=== PATIENT | female | born 1980 | race Caucasian/White ===

== ENCOUNTER 2016-12-02 01:07 | Emergency (ER) | payer SELFPAY ==
[2016-12-02] MEDS ORDERED: ACET325T45 PO (02:32)
[2016-12-02] MEDS ORDERED: PRENAT PO (02:32)
[2016-12-02] MEDS ORDERED: FOLI0.4T2 PO (02:32)
== END 2016-12-02 02:42 | disposition left against medical advice (07) ==
LOC: FTE 01:07
DX: Z53.21 Procedure and treatment not carried out due to patient leaving prior to being seen by health care provider (principal)

== ENCOUNTER 2016-12-02 01:33 | Inpatient (IN) | payer MEDICAID ==
[~2016-12-02] VITALS: Ht 160 cm; Wt 79.9 kg
[2016-12-02 02:11] LABS: URINE BLOOD (Dip) POC Trace-lysed (NEGATIVE)
[2016-12-02 02:20] VITALS: BP 128/74; PULSE 109; RESP 18
--- NOTE | 2016-12-02 02:30 | HP ---
Date/Time of Note Date/Time of Note DATE: 12/02/16 TIME: 02:22 OB - History Hx of Present Free Text/Dictation 36 YO with IUIP about 23 weeks presents to L&D for Headache. she has PNC at out side clinic and she is here as a panel patient. she reports she usually get headache weekly, but her headache usually resolves with Tylenol. she took Tylenol today, but her headache did not resolve. she is a poor historian. she denies LOF per vagina or UC. or VB. she reports FM. she gives a history of elevated BP prior to but not during . she denies RUQ pain or visual changes. Care: Good Care Ultrasounds: Normal mid trimester US Obstetrical Complications: Other (elevatd BP) Medical Complications: Other (h/o elevated BP) Past Family/Social History * Past Medical, Surgical, Family and Obstetric Histories reviewed from chart. OB Admission Exam Vital Signs Vital Signs Vital Signs Date Time Temp Pulse Resp B/P Pulse Ox O2 Delivery O2 Flow Rate FiO2 12/02/16 02:20 97.7 109 18 128/74 Room Air Physical Exam HEENT: WNL Heart: Rhythm Normal Lungs: Clear, Equal Abdomen: WNL Extremities: Normal Reflexes: Normal OB Assessment/Plan Other Assessment: most probably patient has chronic hypertension and Migraine headache, but I can not r/o PIH Other plan: admit for observation and obtain BPs in sitting position d/w RN CBC CMP Sono 24 hr urine collection obtain PNC records perinatologist consult SANDRITA COX MD Dec 02, 2016 02:30
[2016-12-02] MEDS ORDERED: ACET325T45 PO (02:32)
[2016-12-02] MEDS ORDERED: PRENAT PO (02:32)
[2016-12-02] MEDS ORDERED: FOLI0.4T2 PO (02:32)
--- NOTE | 2016-12-02 02:52 | TRIAGE ---
OB Triage Datetime Report Generated by CPN: 12/02/2016 02:52 Datetime: 12/02/2016 02:27 Vaginal Exam Membrane Status: Intact Datetime: 12/02/2016 02:14 Time of Arrival: 12/02/2016 01:34 EGA: 22.5 Arrived By: Ambulatory Arrived From: Emergency Dept Chief Complaint: w/ c/o ABDULLAHI x several days and Hi BP in ER Movement: Present Contractions: Denies/Absent Rupture of Membranes: Denies Vaginal Bleeding: None Vaginal Discharge: Denies Recent Sexual Intercouse: Denies Abdominal Trauma: Not Applicable Patient Complaints: Headache; Dizziness Additional Patient Complaints: Pt states had Hi BP before but not during Time Provider Notified: 12/02/2016 01:55 Provider Notified: Dr Dang Initial Plan: EFM, UA Datetime: 12/02/2016 02:00 Stage of : OB Triage Maternal Assessment Level of Consciousness: Fully Conscious Headache: Generalized Blurred Vision: No Respiratory Effort: Unlabored Nausea/Vomiting: Denies RUQ Epigastric Pain: Denies Facial Edema: None Labor Evaluation Frequency: placed Monitor Mode: External Resting Tone [place]: Relaxed Heart Rate Monitor Mode: External US Comments: FHT 150 Pain Assessment Pain Scale: 8 Pain Presence: Constant Pain Type: Pressure; Ache Pain Location: Head
[2016-12-02] MEDS ORDERED: AL HYDROX/MG HYDROX/SIMETH 30 ML CUP PO PRN (03:00)
[2016-12-02] MEDS ORDERED: HYDROCODONE/APAP (5/325) TAB PO ONE (03:00)
--- NOTE | 2016-12-02 03:15 | RADRPT ---
PROCEDURE: Obstetrical ultrasound, limited. CLINICAL INDICATION: Pelvic pain. TECHNIQUE: Multiple sonographic images of the pelvis were obtained using transabdominal technique . Images were obtained with mcneil scale and color Doppler. The images were reviewed on a PACS works tation. COMPARISON: No prior studies are available for comparison. FINDINGS: There is a single living intrauterine gestation with the fetus in a breech presentation. hear t tones of 163 beats per minute are identified. The placenta is fundal in location, grade 1. There is normal amniotic fluid volume with the maximum vertical pocket measuring 5.6 cm. There is no dina dence of placenta previa or abruption. Measurements were made in order to determine age. The results are as follows: BPD =5.81 cm HC =21.30 cm AC =19.03 cm FL =4.03 cm. Estimated gestational age of approximately 23 weeks and 4 days. The estimated date of delivery is 03/27/2017. The EFW = 596 +/- 89 grams. Estimated weight percentage equals 79.2%. IMPRESSION: Single viable intrauterine gestation of approximately 23 weeks and 4 days, with an ultrasound DAVID of 03/27/2017. .Ravi Wilcox MD, MD Date Time Electronically viewed and signed by .Ravi Wilcox MD, MD on 12/02/2016 03:15 .T/
[2016-12-02 04:09] LABS: INR 0.94; PROTIME 12.6 Sec (12.2-14.2)
[2016-12-02 04:10] LABS: BASOPHILS % 0.3 % (0.0-2.0); EOSINOPHILS % 0.2 % (0.0-7.0); HEMATOCRIT 34.4 % (37.0-47.0); HEMOGLOBIN 11.4 g/dl (12.0-16.0); LYMPHOCYTES # 1.7 10^3/ul (0.8-2.9); LYMPHOCYTES % 14.1 % (15.0-51.0); MEAN CORPUSCULAR HEMOGLOBIN 30.9 pg (29.0-33.0); MEAN CORPUSCULAR HGB CONC 33.1 g/dl (32.0-37.0); MEAN CORPUSCULAR VOLUME 93.2 fl (82.0-101.0); MONOCYTE # 0.6 10^3/ul (0.3-0.9); MONOCYTES % 5.2 % (0.0-11.0); NEUTROPHIL # 9.5 10^3/ul (1.6-7.5); NEUTROPHILS % 79.3 % (39.0-77.0); PARTIAL THROMBOPLASTIN TIME 26.2 Sec (25.0-35.0); PLATELET COUNT 354 10^3/UL (140-415); RED BLOOD COUNT 3.69 10^6/ul (4.20-5.40); RED CELL DISTRIBUTION WIDTH 13.5 % (11.5-14.5); WHITE BLOOD COUNT 11.9 10^3/ul (4.8-10.8)
[2016-12-02 04:15] LABS: ALBUMIN 4.2 g/dl (3.3-4.9); ALBUMIN/GLOBULIN RATIO 1.61; CREATININE 0.46 mg/dl (0.44-1.00); POTASSIUM 3.6 mmol/L (3.5-5.1); TOTAL PROTEIN 6.8 g/dl (6.1-8.1); URIC ACID 2.8 mg/dl (3.1-7.9)
[2016-12-02 04:20] LABS: ADD SCAN DIFF NO
[2016-12-02 05:43] LABS: BARBITURATES Negative (NEGATIVE); BENZODIAZEPINES Negative (NEGATIVE); CANNABINOIDS Negative (NEGATIVE); COCAINE Negative (NEGATIVE); OPIATES Negative (NEGATIVE)
[2016-12-02] MEDS ORDERED: MULTIVIT/MIN/FOLATE/IRON/PREN TAB PO SCH (09:00)
[2016-12-02] MEDS ORDERED: ACETAMINOPHEN 325 MG TAB PO PRN (10:00)
--- NOTE | 2016-12-02 11:07 | DS ---
Date/Time of Note Date/Time of Note DATE: 12/02/16 TIME: 11:02 Obstetrical Discharge Record Final Diagnosis Final Diagnosis: not delivered Other Final Diagnosis iup 23 weeks Headache resolving BP stable labs wnl pt admitted for obs with ABDULLAHI. BP initially 130/70 labs wnl trace protein. Bp on dc home 100/70. pt asymptomatic. fu with obgyn in 2-3 days Condition on Discharge Physical Assessment Voiding: Yes Bowel Movement: Yes Patient Condition: Stable DEEPAK MOSQUEDA MD Dec 02, 2016 11:07
== END 2016-12-02 12:15 | disposition home or self-care (01) | DRG 781 ==
LOC: L-D 01:33 → OBT 01:33 → L-D 01:55 → OBG 02:25 → OBT 02:25
PROVIDERS: ADMIT Specialist; ATTEND Specialist
DX: O26.892 Other specified pregnancy related conditions, second trimester (principal); O09.522 Supervision of elderly multigravida, second trimester; Z3A.23 23 weeks gestation of pregnancy; R51 Headache
CPT/HCPCS: 76815; 80053; 80307; 81003; 84560; 85025; 85610; 85730; G0463

== ENCOUNTER 2017-05-12 04:23 | Emergency (ER) | payer MEDICAID ==
[~2017-05-12] VITALS: Ht 160 cm; Wt 81.2 kg
[~2017-05-12 04:23] MED LIST: ACET325T45 PO; FOLI0.4T2 PO; PRENAT PO
[2017-05-12 04:32] VITALS: Ht 160 cm; Wt 81.2 kg
[2017-05-12] MEDS ORDERED: ONDANSETRON (ODT) 4 MG TAB ODT STA (04:46)
--- NOTE | 2017-05-12 04:56 | ERD ---
ER Documentation Chief Complaint Chief Complaint LOWER BACK PAIN HPI 36-year-old female presents to emergency department for complaints of right upper back right upper quadrant abdominal pain that started last night after eating. Patient describes a sharp pain, 6/10 scale, not better or worse with anything. Patient denies any hematuria or dysuria. Patient denies any fever chills. Patient denies any blood in the stool or black stool. Patient denies any vomiting. Patient denies any fever or chills. ROS All systems reviewed and are negative except as per history of present illness. Medications Home Meds Reported Medications Acetaminophen* (Acetaminophen*) 325 Mg Tablet, 325 MG PO Q4H Y for PAIN AND OR ELEVATED TEMP, #30 TAB 12/02/16 Folic Acid* (Folic Acid*) 0.4 Mg Tablet, 0.4 MG PO DAILY, TAB 12/02/16 Multivit/Min/Fol Ac/Iron/Pren* ( S*) 1 Tab Tab, 1 TAB PO DAILY, TAB 12/02/16 Allergies Allergies: Coded Allergies: No Known Allergy (Unverified , 12/02/16) PMhx/Soc Medical and Surgical Hx: pt denies Medical Hx, pt denies Surgical Hx History of Surgery: No Anesthesia Reaction: No Hx Neurological Disorder: No Hx Respiratory Disorders: No Hx Cardiac Disorders: No Hx Psychiatric Problems: No Hx Miscellaneous Medical Probl: No Hx Alcohol Use: No Hx Substance Use: No Hx Tobacco Use: Yes Smoking Status: Never smoker FmHx Family History: No coronary disease, No diabetes, No other Physical Exam Vitals Vital Signs Date Time Temp Pulse Resp B/P Pulse Ox O2 Delivery O2 Flow Rate FiO2 05/12/17 04:32 98.3 80 12 120/77 100 Physical Exam GENERAL: The patient is well developed and appropriate for usual state of health, in no apparent distress. CHEST: Clear to auscultation bilaterally. There are no rales, wheezes or rhonchi. HEART: Regular rate and rhythm. No murmurs, clicks, rubs or gallops. No S3 or S4. ABDOMEN: Soft, nontender and nondistended. Good bowel sounds. No rebound or guarding. No gross peritonitis. No gross organomegaly or masses. No Weiner sign or McBurney point tenderness. BACK: No midline or flank tenderness. EXTREMITIES: Equal pulses bilaterally. There is no peripheral clubbing, cyanosis or edema. No focal swelling or erythema. Full range of motion. Grossly neurovascularly intact. NEURO: Alert and oriented. Cranial nerves 2-12 intact. Motor strength in all 4 extremities with 5/5 strength. Sensation grossly intact. Normal speech and gait. SKIN: There is no apparent rash or petechia. The skin is warm and dry. HEMATOLOGIC AND LYMPHATIC: There is no evidence of excessive bruising or lymphedema. No gross cervical, axillary, or inguinal lymphadenopathy. Result Diagram: 05/12/17 0451 05/12/17 0451 Results 24 hrs Laboratory Tests Test 05/12/17 04:51 White Blood Count 11.210^3/ul Red Blood Count 4.3410^6/ul Hemoglobin 13.3g/dl Hematocrit 39.1% Mean Corpuscular Volume 90.1fl Mean Corpuscular Hemoglobin 30.6pg Mean Corpuscular Hemoglobin Concent 34.0g/dl Red Cell Distribution Width 12.6% Platelet Count 12113^3/UL Mean Platelet Volume 9.1fl Neutrophils % 70.2% Lymphocytes % 25.1% Monocytes % 3.9% Eosinophils % 0.3% Basophils % 0.2% Nucleated Red Blood Cells % 0.0/100WBC Neutrophils # 7.910^3/ul Lymphocytes # 2.810^3/ul Monocytes # 0.410^3/ul Eosinophils # 0.010^3/ul Basophils # 0.010^3/ul Nucleated Red Blood Cells # 0.010^3/ul Urine Color YELLOW Urine Clarity CLEAR Urine pH 5.0 Urine Specific [place] 1.015 Urine Ketones NEGATIVEmg/dL Urine Nitrite NEGATIVEmg/dL Urine Bilirubin NEGATIVEmg/dL Urine Urobilinogen NEGATIVEmg/dL Urine Leukocyte Esterase TRACELeu/ul Urine Microscopic RBC 1/HPF Urine Microscopic WBC 5/HPF Urine Squamous Epithelial Cells FEW/HPF Urine Hemoglobin NEGATIVEmg/dL Urine Glucose NEGATIVEmg/dL Urine Total Protein NEGATIVEmg/dl Sodium Level 142mmol/L Potassium Level 3.9mmol/L Chloride Level 103mmol/L Carbon Dioxide Level 25mmol/L Anion Gap 18 Blood Urea Nitrogen 13mg/dl Creatinine 0.66mg/dl Glucose Level 106mg/dl Calcium Level 9.4mg/dl Total Bilirubin 0.2mg/dl Direct Bilirubin 0.00mg/dl Indirect Bilirubin 0.2mg/dl Aspartate Amino Transf (AST/SGOT) 26IU/L Alanine Aminotransferase (ALT/SGPT) 44IU/L Alkaline Phosphatase 111IU/L Total Protein 7.8g/dl Albumin 4.5g/dl Globulin 3.30g/dl Albumin/Globulin Ratio 1.36 Lipase 99U/L Current Medications Medications (Trade) Dose Ordered Sig/Bernardino Route PRN Reason Start Time Stop Time Status Last Admin Dose Admin Acetaminophen/ Hydrocodone Bitart ([place] (10/325)) 1 tab ONCE ONCE PO 05/12/17 05:00 05/12/17 05:01 DC 05/12/17 04:56 Ondansetron HCl (Zofran Odt) 4 mg ONCE STAT ODT 05/12/17 04:46 05/12/17 04:47 DC 05/12/17 04:56 Patient was given medication for pain here in emergency department, after treatment, patient verbalized feeling much better. Patient's pain is improved. Patient was given Zofran here in the emergency department. After treatment, patient was able to tolerate po fluids here in the emergency department without any vomiting. There is no signs and symptoms of dehydration. PROCEDURE: US Abdomen (right upper quadrant). CLINICAL INDICATION: Right upper quadrant pain TECHNIQUE: Multiple real-time longitudinal and transverse images of the right upper quadrant of the abdomen were acquired utilizing a curved array transducer. Images were reviewed on a high-resolution PACS workstation. COMPARISON: None FINDINGS: The liver is enlarged and increased in echogenicity without focal mass or intrahepatic biliary dilatation. There is normal hepatopedal flow within the main portal vein. Multiple gallstones are seen. There is no pericholecystic fluid or gallbladder wall thickening.. No intra or extrahepatic biliary dilatation is seen. The common bile duct measures 4.5 mm in maximal dimension. The visualized portions of the pancreas are unremarkable with obscuration of the tail of the pancreas. No free fluid is identified. The right kidney measures 11.3 cm in length. There is normal echogenicity within the right kidney. There is no perinephric fluid collection. No hydronephrosis, mass, or calculus is seen. IMPRESSION: Cholelithiasis. No biliary ductal dilatation. Fatty infiltration of the liver RPTAT: HCNS Physician Ga Date Time Electronically viewed and signed by Brigida Jones Physician on 05/12/2017 05: 28 CS/ CC: CARLOS MILLER NP Procedures/MDM Medical Decision Making: Patient symptoms was likely is consistent with biliary colic. There is low suspicion for abdominal emergencies at this time. Patient s abdominal exam is normal at this time. Patients radiology exam does not show any abdominal emergencies at this time. There is low suspicion for appendicitis , cholecystitis, abdominal aortic aneurysms or peritonitis at this time. There is low suspicion for sepsis. Patient appears well and is hemodynamically stable. Disposition: Home. Condition: Stable Prescription [place], Zofran Instructions: Patient is advised to take medications as prescribed. Patient is advised to rest, increase fluid intake and do brat diet for next 1-2 days and progress as tolerated. Patient is advised that if symptoms are worse, severe abdominal pain, uncontrolled vomiting, high fever, severe flank pain, worst signs and symptoms, to return to the emergency department immediately. Otherwise, patient can follow up with primary care doctor in 5-7 days. Disclaimer: Inadvertent spelling and grammatical errors are likely due to EHR/ dictation software use and do not reflect on the overall quality of patient care. Also, please note that the electronic time recorded on this note does not necessarily reflect the actual time of the patient encounter. Departure Diagnosis: Primary Impression: Biliary colic Condition: Stable Patient Instructions: Biliary Colic With Gallstone (Confirmed) Additional Instructions: Patient is advised to take medications as prescribed. Patient is advised to rest, increase fluid intake and do brat diet for next 1-2 days and progress as tolerated. Patient is advised that if symptoms are worse, severe abdominal pain , uncontrolled vomiting, high fever, severe flank pain, worst signs and symptoms , to return to the emergency department immediately. Otherwise, patient can follow up with primary care doctor in 5-7 days. CARLOS MILLER NP May 12, 2017 04:56
[2017-05-12] MEDS ORDERED: HYDROCODONE/APAP (10/325) TAB PO ONE (05:00)
[2017-05-12 05:07] LABS: BASOPHILS % 0.2 % (0.0-2.0); EOSINOPHILS % 0.3 % (0.0-7.0); HEMATOCRIT 39.1 % (37.0-47.0); HEMOGLOBIN 13.3 g/dl (12.0-16.0); LYMPHOCYTES # 2.8 10^3/ul (0.8-2.9); LYMPHOCYTES % 25.1 % (15.0-51.0); MEAN CORPUSCULAR HEMOGLOBIN 30.6 pg (29.0-33.0); MEAN CORPUSCULAR VOLUME 90.1 fl (82.0-101.0); MEAN PLATELET VOLUME 9.1 fl (7.4-10.4); MONOCYTE # 0.4 10^3/ul (0.3-0.9); MONOCYTES % 3.9 % (0.0-11.0); NEUTROPHIL # 7.9 10^3/ul (1.6-7.5); NEUTROPHILS % 70.2 % (39.0-77.0); PLATELET COUNT 404 10^3/UL (140-415); RED BLOOD COUNT 4.34 10^6/ul (4.20-5.40); RED CELL DISTRIBUTION WIDTH 12.6 % (11.5-14.5); WHITE BLOOD COUNT 11.2 10^3/ul (4.8-10.8)
[2017-05-12 05:08] LABS: ADD UMIC YES; UR ASCORBIC ACID NEGATIVE (NEGATIVE); UR BILIRUBIN (Dip) NEGATIVE (NEGATIVE); UR BLOOD (Dip) NEGATIVE (NEGATIVE); UR CLARITY CLEAR (CLEAR); UR COLOR YELLOW (YELLOW); UR GLUCOSE (Dip) NEGATIVE (NEGATIVE); UR KETONES (Dip) NEGATIVE (NEGATIVE); UR LEUKOCYTE ESTERASE (Dip) TRACE Leu/ul (NEGATIVE); UR NITRITE (Dip) NEGATIVE (NEGATIVE); UR RBC 1 /HPF (0-5); UR SPECIFIC GRAVITY (Dip) 1.015 (1.003-1.030); UR SQUAMOUS EPITHELIAL CELL FEW /HPF (FEW); UR TOTAL PROTEIN (Dip) NEGATIVE (NEGATIVE); UR UROBILINOGEN (Dip) NEGATIVE (NEGATIVE)
[2017-05-12 05:21] LABS: ALBUMIN 4.5 g/dl (3.3-4.9); ALBUMIN/GLOBULIN RATIO 1.36; BILIRUBIN,INDIRECT 0.2 mg/dl (0-1.1); BILIRUBIN,TOTAL 0.2 mg/dl (0.2-1.3); CALCIUM 9.4 mg/dl (8.4-10.2); CREATININE 0.66 mg/dl (0.44-1.00); POTASSIUM 3.9 mmol/L (3.5-5.1); TOTAL PROTEIN 7.8 g/dl (6.1-8.1)
--- NOTE | 2017-05-12 05:28 | RADRPT ---
PROCEDURE: US Abdomen (right upper quadrant). CLINICAL INDICATION: Right upper quadrant pain TECHNIQUE: Multiple real-time longitudinal and transverse images of the right upper quadrant of th e abdomen were acquired utilizing a curved array transducer. Images were reviewed on a high-resoluti on PACS workstation. COMPARISON: None FINDINGS: The liver is enlarged and increased in echogenicity without focal mass or intrahepatic biliary dilat ation. There is normal hepatopedal flow within the main portal vein. Multiple gallstones are seen. There is no pericholecystic fluid or gallbladder wall thickening.. No intra or extrahepatic biliary dilatation is seen. The common bile duct measures 4.5 mm in maximal dimension. The visualized por tions of the pancreas are unremarkable with obscuration of the tail of the pancreas. No free fluid is identified. The right kidney measures 11.3 cm in length. There is normal echogenicity within the right kidney. There is no perinephric fluid collection. No hydronephrosis, mass, or calculus is seen. IMPRESSION: Cholelithiasis. No biliary ductal dilatation. Fatty infiltration of the liver RPTAT: HCNS Physician Ga Date Time Electronically viewed and signed by Physician Ga on 05/12/2017 05:28 PERLA/
[2017-05-12] MEDS ORDERED: ONDA4TAB14 PO (05:32)
[2017-05-12] MEDS ORDERED: HYDR-906 PO (05:32)
[2017-05-12 05:46] VITALS: BP 123/76; PULSE 70; RESP 18; TEMP 98.3
== END 2017-05-12 05:48 | disposition home or self-care (01) ==
LOC: FTE 04:23
DX: K80.70 Calculus of gallbladder and bile duct without cholecystitis without obstruction (principal); Z87.891 Personal history of nicotine dependence
CPT/HCPCS: 36415; 76705; 80053; 81001; 83690; 85025; Z7502; Z7610